=== PATIENT | female | born 1950 | race Caucasian/White ===

== ENCOUNTER → 2020-10-20 09:47 | Outpatient (BNVA) | payer MEDICARE, BC, SELFPAY | PROVIDERS: Referring Provider Family Medicine; Visit Provider Psychiatry & Neurology Neurology | DX: G25.0 Essential tremor (principal); I10 Essential (primary) hypertension; J44.9 Chronic obstructive pulmonary disease, unspecified | CPT/HCPCS: 99204 ==

== ENCOUNTER → 2023-12-04 13:42 | Outpatient (BNVA) | payer MEDICARE, BC, SELFPAY | PROVIDERS: PCP Internal Medicine; Referring Provider Internal Medicine; Visit Provider Student in an Organized Health Care Education/Training Program | DX: M17.11 Unilateral primary osteoarthritis, right knee (principal) | CPT/HCPCS: 99214 ==

== ENCOUNTER 2023-12-28 01:55 | Outpatient (CLI) | payer MEDICARE, BC, SELFPAY ==
[2023-12-28 15:08] LABS: HCT 42.5 % (36.0-46.0); HGB 14.2 g/dL (11.2-15.7); MCH 32.1 pg (27.0-33.0); MCHC 33.4 % (32.0-36.0); MCV 96 fL (80-95); MPV 9.9 fL (8.0-11.0); Platelet Count 345 10^3/uL (130-400); RBC 4.42 10^6/uL (3.93-5.22); RDW 11.8 % (11.7-14.6); RDW-SD 41.9 fL; WBC 10.09 10^3/uL (4.4-10.8)
[2023-12-28 15:36] LABS: Anion Gap 8.8 mmol/L (3-11); BUN 22 mg/dL (7-18); CO2 28.2 mmol/L (21.0-32.0); CREATININE 0.7 mg/dL (0.55-1.02); Calcium 9.5 mg/dL (8.5-10.1); Chloride 99 mmol/L (98-107); Estimated GFR 90.14 (mL/min/1.73m2); Glucose 98 mg/dL (74-106); Potassium 3.9 mmol/L (3.5-5.1); Sodium 136 mmol/L (136-145)
== END 2023-12-28 01:56 | disposition home or self-care (01) ==
LOC: LBO 01:56
PROVIDERS: PCP Internal Medicine; Visit Provider Student in an Organized Health Care Education/Training Program
DX: M17.11 Unilateral primary osteoarthritis, right knee (principal); Z01.818 Encounter for other preprocedural examination
CPT/HCPCS: 36415; 80048; 85027; 73560; 77073

== ENCOUNTER 2023-12-28 14:03 | Outpatient (CLI) | payer MEDICARE, BC, SELFPAY ==
--- NOTE | 2023-12-28 13:15 | DI.RAD_ITS ---
Exam(s) XR STANDING ALIGNMENT XR KNEE RT 1V EXAM: XR STANDING ALIGNMENT and XR knee RT 1 V CLINICAL HISTORY: TKR Planning. TECHNIQUE: 2D digital imaging was performed. Five images were obtained. COMPARISON: No priors for comparison. FINDINGS: BONES: The hips are well maintained. In the right knee, there is marked narrowing of the lateral fem oral tibial joint. Small osteophytes are seen in all 3 joint compartments. There is a small joint e ffusion. The left knee is well maintained. The ankles are well maintained.There is no significant l eg length discrepancy. SOFT TISSUE: Normal. IMPRESSION: Osteoarthritis of the right knee as described. DATA REPOSITORY: RADIATION DOSE DELIVERED:
== END 2023-12-28 14:04 | disposition home or self-care (01) ==
LOC: DIORS 14:03
PROVIDERS: PCP Internal Medicine; Visit Provider Physician Assistant
DX: M17.11 Unilateral primary osteoarthritis, right knee (principal)
CPT/HCPCS: 73560; 77073

== ENCOUNTER 2024-01-09 08:09 | Day surgery (SDC) | payer MEDICARE, BC, SELFPAY ==
[2024-01-09] VITALS (33 sets, daily range): BP systolic 119–165; BP diastolic 52–112; PULSE 66–87; RESP 12–26; TEMP 35.9–36.5; O2SAT 92–99; BMI 25.7
--- NOTE | 2024-01-09 07:32 | DSE_ITS ---
Date of service: 01/09/24 Time of Service: 10:09 Discharge Plan Disposition Patient Disposition: Home Condition: Good Discharge Details Reason For Visit: Right knee DJD Attending Provider: Damon Ashton Primary Care Provider: Katerin Nava Home Meds and New Rx's Prescriptions: New celecoxib [Celebrex] 200 mg capsule 200 mg PO BID PRNQty: 60 0RF Rx Instructions: Take one tablet twice daily for pain and inflammation aspirin 81 mg tablet,delayed release (DR/EC) 81 mg PO BID 30 Days Qty: 60 0RF acetaminophen 500 mg tablet 1,000 mg PO Q8H PRN Qty: 90 0RF Rx Instructions: Take two tablets up to every 8 hours as needed for pain dexamethasone 4 mg tablet 4 mg PO DAILY Qty: 2 0RF Rx Instructions: Take one tablet once daily for two days docusate sodium [Colace] 100 mg capsule 100 mg PO BID Qty: 30 0RF gabapentin 300 mg capsule 300 mg PO QHS Qty: 14 0RF Rx Instructions: Take one tablet at bedtime pantoprazole 40 mg tablet,delayed release (DR/EC) 40 mg PO DAILY Qty: 14 0RF oxycodone 5 mg tablet 5 mg PO Q4H PRNQty: 18 0RF Rx Instructions: Take one tablet up to every 4 hours as needed for severe postoperative pain Continued hydrochlorothiazide 25 mg tablet 25 mg PO DAILY Acidophilus Capsule 10 mg PO DAILY magnesium oxide 400 mg (241.3 mg magnesium) tablet 400 mg PO DAILY meclizine 25 mg tablet 25 mg PO DAILY PRN cod liver oil Capsule 1 cap PO DAILY fluticasone propion-salmeterol [Advair HFA] 230-21 mcg/actuation HFA aerosol inhaler 2 puff inhalation BID cholecalciferol (vitamin D3) 25 mcg (1,000 unit) capsule 50 mcg PO DAILY fexofenadine 180 mg tablet 180 mg PO DAILY famotidine 20 mg tablet 20 mg PO DAILY PRN amlodipine 5 mg tablet 5 mg PO DAILY pravastatin 40 MG tablet 40 mg PO DAILY fluticasone propionate 16 GM spray,suspension 1 spray NS BID multivitamin [Multi-Day] 1 EACH tablet 1 tab PO DAILY ipratropium-albuterol 3 ML solution for nebulization 3 ml Inhalation .Q4-6HOUR PRN triamcinolone acetonide 15 GM ointment 1 ea Topical BID PRN PRN calcium carbonate-vitamin D3 1 EACH tablet 1 tab PO DAILY omeprazole 40 MG capsule,delayed release(DR/EC) 40 mg PO BID albuterol sulfate [ProAir HFA] 200 PUFF HFA aerosol inhaler 1 - 2 puff Inhalation Q6H PRN PRN losartan 100 MG tablet 100 mg PO DAILY vit A and D3 in cod liver oil [cod liver oil] 1 EACH capsule 1 cap PO DAILY polyethylene glycol 3350 17 gram powder in packet 17 g PO DAILY PRN montelukast [Singulair] 10 MG tablet 10 mg PO HS Discontinued naproxen sodium 220 mg tablet 220 mg PO BID PRN acetaminophen [Tylenol Extra Strength] 500 MG tablet 500 - 1,000 mg PO PRN PRN Discharge Instructions Additional Instructions: Total Knee Discharge Instructions Activity: The most important activity is to walk and to work on gentle motion (both flexion and extension). You should try to take short walks a few times a day. It is important that when resting you work on keeping the knee straight. Avoid putting a pillow behind the knee as this will encourage flexion. Work on range of motion exercises as provided by Physical Therapy. - Start outpatient physical therapy within 2 weeks. - You should wear the CYNTHIA hose on both legs for 2 weeks. You may remove these at night. You may also use any compression sock in place of the CYNTHIA hose. - Utilize [employer] to review exercises, see videos on exercises and obtain basic information pertaining to your surgery and your recovery. Dressing: Remove the Gomez wrap by 2 days after your surgery and put on the CYNTHIA stocking given to you from the hospital. Keep the surgical dressing (underneath the GOMEZ wrap) in place for at least one week. After the first week it may be removed and replaced with light gauze and tape or nothing. The wound and dressing may get wet after 3 days but avoid soaking the dressing or otherwise it will need to be changed. Many people prefer covering the dressing with cling wrap (saran wrap) to minimize it from getting soaked. If it gets wet, just pat dry. If it starts to peel off then it will need to be changed. Medications: - You should take Tylenol and anti-inflammatory Celebrex as your primary pain control medications. If the Celebrex is too expensive or not covered, please call the office for another alternative (Advil/Ibuprofen or Naproxen/Aleve) - You have been prescribed a stronger pain medication Oxycodone for breakthrough pain, take as needed as prescribed. - You have also been prescribed a stomach acid reduction agent Pantoprozole to help reduce stomach acid and reflux. - You have been prescribed Gabapentin to take at night for restlessness and nerve pain. - You will be taking Aspirin 81mg twice a day for DVT prevention unless instructed otherwise. - You have also been prescribed Decadron to take to control post-operative nausea and pain. You will start this tomorrow. - If you have constipation you should take Colace (which has been prescribed) or Miralax (which is available [id number]). It takes most people 3-4 days to have a bowel movement. Follow-up: 2 weeks If you have any acute concerns or questions, please do not hesitate to contact the office at [phone]. You may contact Dr. Ashton with any questions after hours through the hospital at [phone] or on his cell phone at [phone]. Stand Alone Forms: Anesthesia Discharge Inst., Anes.Nerve Block Instructions, Huan Keene ([facility]) Referrals: Damon Ashton MD [ [facility] STAFF PHYSICIAN] - 01/22/24 1:45 pm Equipment/Supplies: Walker Activity:: Elevate Remove Dressings/Wound Care:: Do Not Remove Shower/Bathe:: Cover Diet:: As Tolerated Discharge Orders Discharge Orders: Discharge Order (Routine); Ordered 01/09/24 Ordered By: Brooke Block Discharge Data Discharge Date/Time-TO BE ENTERED AT DEPARTURE: 01/09/24 15:30 DS: Summary Time Spent with Patient providing and/or coordinating discharge services: Less than 30 minutes Status at Discharge Functional status at discharge: uses cane/walker Overall status at discharge: patient is progressing back to baseline Mental Status: mental status grossly normal Speech and Movement: speech and movement normal Mood: congruent mood Affect: normal affect Quality:SDOH Health Related Social Needs: No Data to Display Exam Psych Mental Status: mental status grossly normal Speech and Movement: speech and movement normal Mood: congruent mood Affect: normal affect DS: Data Vitals/I&O Vitals and I&O: Intake & Output 01/08/24 01/08/24 01/09/24 11:59 23:59 11:59 Weight 136 lb 15.994 oz PFSH All Active Problems Localized osteoarthritis of right knee (Acute) Thyroid nodule (Acute) Environmental allergies (Acute) prior reported negative testing decades ago but does have some improvement with antihistamine (25%) Essential tremor (Acute) Medical History Hx of sebaceous cyst Piriformis syndrome of left side Impaired fasting glucose Palpitations Pt. states she had a full work up and nothing came of it, and does not have anything currently Sciatica Lumbar spondylosis Cervical spondylosis History of inflammation of sacroiliac joint Idiopathic osteoarthritis GERD (gastroesophageal reflux disease) Asthma Allergic rhinitis Hypertension Anxiety Overweight Hyperlipidemia Surgical History S/P hemorrhoidectomy History of tonsillectomy History of appendectomy H/O tubal ligation H/O total hysterectomy History of cholecystectomy H/O ventral hernia repair H/O flexible sigmoidoscopy H/O breast biopsy Hx of cataract surgery H/O local excision of skin lesion Hx of colonoscopy History of esophagogastroduodenoscopy (EGD) Family History Mother Diabetes Coronary arteriosclerosis Osteoporosis Chronic renal failure Hypercholesterolemia Brother Hypertension Daughter Asthma Father Heart disease Alcohol abuse Son Malignant tumor of thyroid gland Sister Hypertension Breast cancer Social History (Updated 10/20/20 @ 12:17 by Ronit Villagomez MD) Smoking/Tobacco Use Status: Never Smoking risk assessment performed?: Yes Alcohol Intake: current Alcohol Intake frequency: a few times a week Alcohol type: wine Details: 1-2 TIMES PER WEEK Drug use: Never Substance use type: does not use Household members: spouse Housing: house Number of Children: 2 number of grandchildren: 1 current occupation: Retired What is your relationship status?: Panel score (0-1 are the most socially isolated patients): 1 What type of physical activity do you participate in: walking Seatbelt use: always Do you feel safe at home: Yes Do you feel safe in your relationship?: Yes Time Spent with Patient Time Spent with Patient: <45 minutes Time was spent: preparing to see the patient(eg.review tests), obtaining and/or reviewing separately otained hiistory and counseling the patient
[2024-01-09] MEDS: Celecoxib 200 MG CAP 400 MG PO (08:36)
[2024-01-09] MEDS: Gabapentin 300 MG CAP PO (08:36)
[2024-01-09] MEDS: Acetaminophen 500 MG TAB 1000 MG PO (08:36)
[2024-01-09] MEDS: Lactated Ringers 1,000 ML 80 ML IV (08:46)
--- NOTE | 2024-01-09 09:27 | W.ANESPRE ---
General Info Date of Service Date Performed: 01/09/24 Height: 5 ft 1 in Weight: 61.9 kg Body Mass Index (BMI): 25.7 Surgical Procedure: Operation Date: 01/09/24 11:25 Proposed Procedure Side Surgeon p Knee Total Arthroplasty W/ OrthAlign Right Damon Ashton MD Meds Allergies and Home Medications Allergies Allergy/AdvReac Type Severity Reaction Status Date / Time NSAIDS (Non-Steroidal Allergy Intermediate Hives Verified 01/09/24 08:25 Anti-Inflamma Sulfa (Sulfonamide Allergy Intermediate Hives Verified 01/09/24 08:25 Antibiotics) MOISE Inhibitors AdvReac cough Verified 01/09/24 08:25 Home Medication Medication Instructions Recorded fluticasone propionate 50 1 spray NS BID 08/15/14 mcg/actuation nasal spray,suspension pravastatin 40 mg tablet 40 mg PO DAILY 08/15/14 albuterol sulfate 90 mcg/actuation 1 - 2 puff inhalation Q6H PRN PRN 08/18/14 aerosol inhaler (ProAir HFA) calcium carbonate 600 mg-vitamin 1 tab PO DAILY 08/18/14 D3 5 mcg (200 unit) tablet ipratropium 0.5 mg-albuterol 3 mg 3 ml inhalation .Q4-6HOUR PRN 08/18/14 (2.5 mg base)/3 mL nebulization soln losartan 100 mg tablet 100 mg PO DAILY 08/18/14 multivitamin (Multi-Day tablet) 1 tab PO DAILY 08/18/14 omeprazole 40 mg capsule,delayed 40 mg PO BID 08/18/14 release triamcinolone acetonide 0.5 % 1 ea topical BID PRN PRN 08/18/14 topical ointment vitamins A and D3 in cod liver oil 1 cap PO DAILY 08/18/14 1,250 unit-135 unit capsule (cod liver oil) montelukast 10 mg tablet 10 mg PO HS 09/02/14 (Singulair) cholecalciferol (vitamin D3) 25 50 mcg PO DAILY 06/29/20 mcg (1,000 unit) capsule fluticasone propionate 230 2 puff inhalation BID 06/29/20 mcg-salmeterol 21 mcg/actuation HFA inhaler (Advair HFA) fexofenadine 180 mg tablet 180 mg PO DAILY 06/30/20 famotidine 20 mg tablet 20 mg PO DAILY PRN 10/20/20 polyethylene glycol 3350 17 gram 17 g PO DAILY PRN 10/20/20 oral powder packet Lactobacillus acidophilus 10 mg PO DAILY 12/04/23 (Acidophilus capsule) amlodipine 5 mg tablet 5 mg PO DAILY 12/04/23 cod liver oil 1 cap PO DAILY 12/04/23 hydrochlorothiazide 25 mg tablet 25 mg PO DAILY 12/04/23 magnesium oxide 400 mg (241.3 mg 400 mg PO DAILY 12/04/23 magnesium) tablet meclizine 25 mg tablet 25 mg PO DAILY PRN 12/04/23 Current Visit Medications: Current Medications Generic Name Dose Route Start Last Admin Trade Name Freq PRN Reason Stop Dose Admin Acetaminophen 1,000 mg 01/09/24 06:00 01/09/24 08:36 Acetaminophen 500 Mg Tab PO 01/09/24 23:59 1,000 mg PREOP MARTINA Administration Celecoxib 400 mg 01/09/24 06:00 01/09/24 08:36 Celecoxib 200 Mg Cap PO 01/09/24 23:59 400 mg PREOP MARTINA Administration Droperidol 0.625 mg 01/09/24 08:26 Droperidol 5 Mg/2 Ml Vial IVP 02/08/24 08:25 DIRECTED PRN Nausea Ephedrine Sulfate 0 mg 01/09/24 08:26 Ephedrine 25 Mg/5 Ml Syringe IVP 02/08/24 08:25 DIRECTED PRN Fentanyl 0 mcg 01/09/24 08:26 Fentanyl 100 Mcg/2 Ml Vial IVP 02/08/24 08:25 DIRECTED PRN Gabapentin 300 mg 01/09/24 06:00 01/09/24 08:36 Gabapentin 300 Mg Cap PO 01/09/24 23:59 300 mg PREOP MARTINA Administration Hydromorphone HCl 0.5 mg 01/09/24 07:30 Hydromorphone 2 Mg/Ml Syr IVP 02/08/24 07:29 Q2H PRN PRN Hydromorphone HCl 0 mg 01/09/24 08:26 Hydromorphone 2 Mg/Ml Syr IVP 02/08/24 08:25 DIRECTED PRN Ringer's Solution 1,000 mls @ 80 mls/hr 01/09/24 06:00 01/09/24 08:46 IV 01/09/24 23:59 80 mls/hr INFUSION MARTINA Administration Cefazolin Sodium/Dextrose 2 gm in 50 mls @ 100 mls/hr 01/09/24 06:00 Ancef Duplex IVPB 01/09/24 23:59 PREOP MARTINA Tranexamic Acid/Sodium Chloride 1,000 mg in 100 mls @ 600 mls/hr 01/09/24 06:00 IVPB 01/09/24 23:59 PREOP MARTINA Cefazolin Sodium/Dextrose 1 gm in 50 mls @ 100 mls/hr 01/09/24 08:00 Ancef Duplex IVPB 01/10/24 00:29 Q8H MARTINA IV Miscellaneous Supplies 1 each 01/09/24 06:00 Iv Access IV 01/09/24 23:59 DIRECTED MARTINA Naloxone HCl 0 mg 01/09/24 08:26 Naloxone 0.4 Mg/Ml Vial IVP 02/08/24 08:25 PRN PRN Oxycodone HCl 0 mg 01/09/24 07:30 Oxycodone 5 Mg Tab PO 02/08/24 07:29 Q3H PRN PRN Pain Sodium Chloride 0 ml 01/09/24 06:00 Normal Saline Flush 10 Ml Syr IV 01/09/24 23:59 PRN PRN Sodium Chloride 0 ml 01/09/24 06:00 Normal Saline 10 Ml Vial IJ 01/09/24 23:59 DIRECTED PRN Sterile Water 0 ml 01/09/24 06:00 Water,Injection,Sterile 10 Ml Vial IJ 01/09/24 23:59 DIRECTED PRN PFSH Active Problems Active Problems: Problem Status Onset Code Localized osteoarthritis of right knee M17.11 Thyroid nodule E04.1 Environmental allergies Z91.09 Essential tremor G25.0 Medical History Medical History Hx of sebaceous cyst Piriformis syndrome of left side Impaired fasting glucose Palpitations Pt. states she had a full work up and nothing came of it, and does not have anything currently Sciatica Lumbar spondylosis Cervical spondylosis History of inflammation of sacroiliac joint Idiopathic osteoarthritis GERD (gastroesophageal reflux disease) Asthma Allergic rhinitis Hypertension Anxiety Overweight Hyperlipidemia Medical History Comments:: Pt. states she is not taking any of her medication the morning of as it makes her stomach upset if she does not take them with food. She states she discussed this with prior, and he was okay with this. Surgical History Surgical History S/P hemorrhoidectomy History of tonsillectomy History of appendectomy H/O tubal ligation H/O total hysterectomy History of cholecystectomy H/O ventral hernia repair H/O flexible sigmoidoscopy H/O breast biopsy Hx of cataract surgery H/O local excision of skin lesion Hx of colonoscopy History of esophagogastroduodenoscopy (EGD) Tobacco Smoking/Tobacco Use Status: Never Alcohol Alcohol Intake: current Alcohol intake frequency: a few times a week Alcohol type: wine Details: 1-2 TIMES PER WEEK Substance Use Substance use: Never Substance use type: does not use Vital Signs and Lab Results Vital Signs Most Recent Vital Signs in EMR: Most Recent Vital Signs Temp Pulse Resp BP Pulse Ox 36.5 C 80 16 158/65 H 98 01/09/24 08:15 01/09/24 08:15 01/09/24 08:15 01/09/24 08:15 01/09/24 08:15 Lab Results Blood Type / Crossmatch: No Data to Display Complete Blood Count: White Blood Count 10.09 10^3/uL (4.4-10.8) 12/28/23 14:47 Red Blood Count 4.42 10^6/uL (3.93-5.22) 12/28/23 14:47 Hemoglobin 14.2 g/dL (11.2-15.7) 12/28/23 14:47 Hematocrit 42.5 % (36.0-46.0) 12/28/23 14:47 Platelet Count 345 10^3/uL (130-400) 12/28/23 14:47 Complete Metabolic Panel: Sodium 136 mmol/L (136-145) 12/28/23 14:47 Potassium 3.9 mmol/L (3.5-5.1) 12/28/23 14:47 Chloride 99 mmol/L (98-107) 12/28/23 14:47 Carbon Dioxide 28.2 mmol/L (21.0-32.0) 12/28/23 14:47 BUN 22 mg/dL (7-18) H 12/28/23 14:47 Creatinine 0.7 mg/dL (0.55-1.02) 12/28/23 14:47 Est GFR (CKD-EPI 2020) 90.14 (mL/min/1.73m2) 12/28/23 14:47 Calcium 9.5 mg/dL (8.5-10.1) 12/28/23 14:47 Glucose 98 mg/dL (74-106) 12/28/23 14:47 Liver Function Panel: No Data to Display Coagulation Panel: No Data to Display Cardiac Panel: No Data to Display Arterial Blood Gas: No Data to Display Venous Blood Gas: No Data to Display Pancreas Panel: No Data to Display Thyroid Panel: No Data to Display Infectious Disease: No Data to Display Blood Cultures: No Data to Display Toxicology Panel: No Data to Display Anesthesia Assessment and Plan Anesthesia History Personal History: No History of Anesthesia Complications Family History: No Family History of Anesthesia Complications Exercise Tolerance Exercise Tolerance: Metabolic Equivalents>4 Pertinent Negatives Pertinent Negatives: No Symptoms of GERD Cardiac & Pulmonary Exam Cardiac Exam: Normal S1/S2 Heart Sounds Pulmonary Exam: Clear Bilateral Breath Sounds Implantable Cardiac Device Does patient have a Pacemaker or an ICD?: No Airway Exam Known Difficult Airway: No Mallampati Class: 2 Mouth Opening: Normal (> 3cm) Thyromental Distance: Greater than 3 cm Neck Range of Motion: Full ROM Neck Circumference: Normal Teeth Condition: Normal Dentition ASA Classification ASA Score: ASA 2 Emergency Case?: No NPO Status NPO Status: NPO Clears >2 hours, Solids >8 hours Anesthesia Plan Resuscitation Status: Full Code Anesthesia Technique: Spinal Anesthesia Airway Planned: Natural Airway Monitors Used: Standard Monitors
--- NOTE | 2024-01-09 10:01 | W.ANESNERVE ---
Nerve Block Single Injection Procedure Date and Time Date Performed: 01/09/24 Procedure Start: 09:34 Location Where Procedure Performed Procedure Location: Day Surgery Unit Reason Performed: Postoperative Analgesia Requesting Provider: Damon Ashton Timeout Performed Timeout Performed: Yes Monitoring Used ECG, Blood Pressure, SpO2 and See EMR for corresponding vital signs Sterility Sterility: Hand Hygiene, Surgical Cap, Surgical Mask, Sterile Gloves, Eye Protection and Chlorhexidine Sedation Given During Procedure Sedation Given (Indicate Dose Given): Versed IV Dose:: 2mg IVP Patient Mental Status Patient Mental Status: Sedate with meaningful communication Nerve Block 1st Nerve Block: Laterality: Right Block Type: Adductor Canal Ultrasound Image Saved?: Yes Needle / Catheter Used: 100mm SonoPlex II Local Anesthetic Bolus (Indicate Dose Given): Lidocaine used for local infiltration of skin, Injected in 3-5ml increments after negative blood aspiration and Ropivacaine 0.5% Dose:: 0.5%/20cc (100mg) Additives (Indicate Dose Given): Epinephrine to make 1:200,000 (5mcg/ml) Dose:: 100mcg and Decadron Dose:: 10mg PF Ultrasound: Sterile probe cover and gel used Nerve Stimulator: Not Used Paresthesia: None Procedure Tolerated: No Complications and Patient tolerated well Procedure Outcome: Successful Performed By: Dennis Diaz
[2024-01-09] MEDS: ceFAZolin 2 GM/50 ML BAG IVPB (10:40)
[2024-01-09] MEDS: TRANEXAMIC ACID/SOD. CHL. 1,000 MG/100 ML BAG 600 MG IVPB (10:50)
--- NOTE | 2024-01-09 13:05 | W.ANESPOSTOP ---
Postoperative Evaluation Date, Time and Location Date Performed: 01/09/24 Time Performed: 13:06 Patient Location: Day Surgery Unit Vital Signs Most Recent Imported Vital Signs: Most Recent Vital Signs Temp Pulse Resp BP Pulse Ox 36.5 C 72 15 139/68 98 01/09/24 12:38 01/09/24 12:40 01/09/24 12:40 01/09/24 12:40 01/09/24 12:40 Pain Score Most Recent Pain Score: Most Recent Pain Score Pain Level 0 01/09/24 12:38 Assessment Mental Status: Awake (Alert & Oriented to Patient Baseline) Airway and Respiratory Function: Patent airway with normal (patient baseline) respiratory exam Cardiovascular Function: Hemodynamically Stable Hydration Status: Adequately Hydrated Nausea & Vomiting: No Nausea or Vomiting Pain: Pt. Denies Any Pain Peripheral Nerve Block: Regional nerve block not resolved at time of post operative discharge
--- NOTE | 2024-01-09 14:18 | W.PM.OP ---
Date of service: 01/09/24 Time of Service: 10:45 Operative Note Operative Note DATE OF PROCEDURE: 01/09/24 PRE-OP DIAGNOSIS: Right Knee Osteoarthritis with Valgus Deformity POST-OP DIAGNOSIS: same PROCEDURE: Right Total Knee Replacement with Intraoperative Navigation SURGEON: Damon Ashton FURNACE ROOM SUPERVISOR: Brooke Block ANESTHESIA TYPE: Spinal Refer to Anesthesia Record ESTIMATED BLOOD LOSS: 100 PATHOLOGY: none sent TOURNIQUET TIME: 0 COMPLICATIONS: None Patient was transported to: PACU Patient's condition: stable Implants: 1. Depuy Attune Cementless Cruciate Retaining Femoral Component, Size 5 Narrow 2. Depuy Attune Cementless Fixed Bearing Tibial Component, Size 4 3. Depuy Attune 5x7 CR/FB Poly 4. Depuy Attune Patellar Component, Size 32 Indications: I have seen Sara in clinic for symptoms of RIGHT knee arthritis, confirmed with radiographic findings. Sara has exhausted nonoperative methods and was having significant limitations in daily function and desired better function and less pain. I discussed the technical details of a knee replacement. I explained the risks of the procedure to include, but not limited to, bleeding, infection, pain, stiffness, fracture, damage to nerves and vessels, damage to muscles and tendons, loosening, need for repeat procedure, blood clot and cardiopulmonary demise. Despite these risks, she elected to proceed. Findings: There was significant signs of arthritis significantly worse in the lateral compartment with wear of the lateral tibia and posterior lateral femur. Procedure Description: Sara was greeted in the preoperative holding area where the correct side was identified and marked. The consent was reviewed with the patient and signed. The history and physical was updated. All questions were answered. Preoperative mediacations were administered: Acetaminophen 1000mg, Celebrex 400mg, and Gabapentin 300mg. An adductor canal block was then administered by the anesthesia team in the PACU. Sara was taken back to the operating room. A spinal anesthestic was then administered. The patient was placed into the supine position on the operating room table. A nonsterile tourniquet was placed high onto the leg. Posts were placed for positioning during the procedure. All bony prominences were well padded. Prophylactic antibiotics in the form of Cefazolin were administered. 1g of Tranxemic Acid was given intravenously within 30 minutes of incision. The right leg was then prepped with Chloraprep and draped in a standard fashion with impervious stockinette. A second prep with Chloraprep was performed prior to application of Iodine impregnated skin protection. A timeout to confirm correct identity, side and site, procedure, allergies, anesthesia, and medical concerns was performed. With the knee in some flexion, a midline incision was made overlying the knee. Full thickness skin flaps were raised once the extensor mechanism was encountered. These were raised medially and laterally. Any bleeding was controlled with electrocautery. Once the extensor mechanism was fully exposed, a medial parapatellar arthrotomy was performed in a flexed position. All bleeding from the arthrotomy and the geniculate arteries was coagulated. A medial subperiosteal peel was performed with electrocautery to the midcoronal plane. The fat pad was removed while keeping the patellar tendon protected. The anterior distal femur synovium was removed for later visualization. The ACL and PCL were resected and the anterior horn of the lateral meniscus was transected. The knee was then flexed with the patella everted. A single starting pin was then placed 1cm anterior to the PCL insertion and the notch in the direction of the femoral head. The OrthoAlign device was applied over the pin. It was oriented to be in line with the epicondylar axis and the trochlear groove. It was then pinned into place. The navigation computer was then turned on and calibrated. The distal femur cut was set at 0.5 degrees valgus and 3.5 degrees flexion. The distal femur cutting guide then was positioned for a 9mm cut. The distal femur was cut with an oscillating saw while protecting the soft tissues. The tibia was then addressed. The OrthoAlign device was placed over the tibial tubercle and medial tibia and secured into position. Once again, OrthoAlign was calibrated and then set for a 0.5 degree varus cut and 5 degrees of posterior slope. With this locked into position, the cut thickness stylus was used to assess cut thickness. The lateral side, most involved side, was set for a 6mm cut, corresponding to 8mm medially. This was then held in position and pinned into place with 2 additional pins and a cross pin for stability. The medial and lateral collateral ligaments were protected and the cut was performed. With this completed, it was assessed and noted to be of appropriate dimensions. The guide and OrthoAlign was removed. A spacer block was inserted and the knee was brought into extension to ensure enough space was present. . The Orthoalign gap balancing device was then placed in extension. This was used to ensure that the ligaments were properly balanced with up to 2 to 3 mm laxity laterally compared medially. The extension gap was measured as 20mm. The knee was then brought into 90 degrees of flexion and the ligament public health microbiologist was once again placed. Under the same amount of force the flexion gap was measured. The Attune specific jig was placed and the flexion gap was made to match the extension gap. The femur was then sized as a size 5 narrow. The 4-in-1 cutting guide was the placed. An grupo wing was used to confirm appropriate position of the anterior cut to avoid notching. This cutting guide was ensured to be flush on the cut surface and then pinned into place with headed pins. While protecting the soft tissues, quad tendon, and collateral ligaments, the anterior and posterior cuts were performed with a saw. The central two pins were removed and the posterior and anterior chamfers were cut next. The notch-cutting guide was placed. This was pinned to lateralize the femoral component as much as possible while keeping it flush on the cut surface. This was then pinned into position. A saw was used to make the notch cut. A rasp smoothed the cut surfaces. The medial and lateral menisci were removed. A trial femoral component was then inserted, impacted down to the cut surfaces, and the lug holes were drilled. A provisional trial tibial component was placed and the knee was brought through range of motion. There was noted to be excellent extension and flexion. There was no significant instability. The patella was tracking without thumbs. A size 7mm polyethylene component provided the best range of motion and stability with less than 2mm gapping with medial and lateral stress and full extension without significant hyperextension. The tibial cut surface was fully exposed. The tibia was then sized as a 4. The tibia had been previously marked during trialing to correspond to the center of the tibial component to help with rotation. The trial was aligned to this sheridan, approximately rotated to the medial 1/3rd of the tibial tubercle. The trial was pinned into place. The tibia was prepared with a reamer and a keel punch and lug holes. The knee was then brought into extension and the patella was measured as 23mm. Using the patellar clamp and cut guide, this was resected to a flat surface with at least 13mm of thickness remaining. The size 32 patella fit the best. This was oriented and then clamped into position. The lugs were drilled. The trial components were removed. The final components were opened on the back table. The periosteal and capsular tissues, especially posteriorly, around the knee were then systematically injected with a periarticular cocktail consisting of 246mg of Ropivacaine, 0.5mg of Epinephrine, 0.08mg of Clonidine, and 30mg of Ketorolac, diluted to 100cc. On the back table, with the implants opened, the cement was mixed. One batch of high viscosity cement was prepared with vacuum assistance. After the cement was ready a small amount was placed on the cut surface of the patella and the patellar button was clamped into position and held. While the cement was hardening, the cementless knee components were placed. Starting with the tibial component, the tibia was subluxed anteriorly and the lug holes of the component were lined up. The tibia was then impacted with an impactor and mallet until the tibial component was in contact with the tibia. Then, the femoral component was inserted. The lug holes were aligned and the component was impacted into position. The final polyethylene component was inserted. The knee was irrigated with Surgiphor Betadine solution. This was allowed to sit in the knee for 3 minutes and then it was thoroughly irrigated out with saline. After the cement had finally cured, approximately 15min, the clamp was removed from the patella and the knee was taken through range of motion. The patella was tracking with a no-thumbs technique. The capsule was then reapproximated with a No. 1 Vicryl at multiple locations. The capsule was finally closed with a No. 2 Stratafix, barbed suture. Deep tissues were then reapproximated with 0 Vicryl and 2-0 Vicryl. The skin was closed with a running 3-0 Monocryl in a subcuticular fashion. This was reinforced with skin glue. A Mepilex silver dressing was applied along with a [id number] MOISE wrap. A CryoCuff was applied. Sara was transferred to the hospital bed without difficulty an suffering no apparent complication. Sara has a good prognosis. Physical therapy will start today and without restrictions, weight-bearing as tolerated. Aspirin 81mg BID will be used for DVT prophylaxis.
--- NOTE | 2024-01-09 14:53 | IN_ITS ---
PT Notes Visit Reasons: Right knee DJD Physical Therapy Day Surgery Initial Evaluation Date: 01/09/2024 Referring Doctor: JOHNATHON Yousif PT Orders: PT CONSULT: S/P Ortho Surgery Precautions: Per Dr. Ashton, WBAT on the right LE with AD. Patient Profile/Admitting Diagnosis: Sara is a 73-year-old female with degenerative joint disease of the right knee and status post right total knee arthroplasty on postoperative day 0. PMHX: Medical History Allergic rhinitis Anxiety Asthma Cervical spondylosis GERD (gastroesophageal reflux disease) History of inflammation of sacroiliac joint Hx of sebaceous cyst Hyperlipidemia Hypertension Idiopathic osteoarthritis Impaired fasting glucose Lumbar spondylosis Overweight Palpitations Piriformis syndrome of left side Sciatica Surgical History H/O breast biopsy H/O flexible sigmoidoscopy H/O local excision of skin lesion H/O total hysterectomy H/O tubal ligation H/O ventral hernia repair History of appendectomy History of cholecystectomy History of esophagogastroduodenoscopy (EGD) History of tonsillectomy Hx of cataract surgery Hx of colonoscopy S/P hemorrhoidectomy Social History/Home Situation: Lives with in a private home with 5 steps to enter with rails on both sides. Independent with all aspects vitals prior to surgery. Equipment Owned/DME: [facility] Subjective: Minimal pain and discomfort 1/10 in the right knee at rest and with movement. Denied headache, chest pain, and lightheadedness throughout session. Objective: General Observation: Sitting on bedside recliner. MOISE wraps to right LE. Cryo/Cuff to right knee. TEDS to left leg. Has been present throughout evaluation Mental Status: Alert and oriented x 4 Pain: 1/10 in the R knee at rest and with movement ROM: Right Lower Extremity: Hip flexion WFL. Hip abduction WFL. Knee flexion 10 degrees to 110 degrees. Extension -10 degrees ankle dorsiflexion WFL. Ankle plantarflexion WFL. Left Lower Extremity: Hip flexion WFL. Hip abduction WFL. Knee flexion WFL. Ankle dorsiflexion WFL. Ankle plantarflexion WFL. Strength: Right Lower Extremity: Hip flexors 4/5. Hip abductors 4/5. Knee flexors 3-/5. Knee extensors 3-/5. Ankle dorsiflexors 4/5. Ankle plantarflexors 4/5. Left Lower Extremity:Hip flexors 5/5. Hip abductors 5/5. Knee flexors 5/5. Knee extensors 5/5. Ankle dorsiflexors 5/5. Ankle plantarflexors 5/5. Sensation: Intact as to pain and light pressure in bilateral lower extremities Bed Mobility/Transfers: Minimal cueing provided for use of B hands as needed for support, movement sequence, AD management, and posture to reduce fall risk and minimize pain report Sit to stand stand by assist Stand to sit stand by assist Bed to chair stand by assist Gait: Facilitated safe and correct performance of level surface ambulation covering a distance of 150 feet using front wheeled walker with reciprocal heel-toe gait pattern requiring only standby assist and minimal verbal cueing for correct gait pattern, AD management, and posture to minimize pain report and reduce fall risk. Stairs: Guided patient with safe and correct negotiation of 3 x 4 inch steps and 4 x 6 inch steps while holding onto bilateral rails with step to gait pattern requiring minimal verbal cueing for increased knee flexion on the right during each ascent, hand placement, and posture to minimize fall risk and reduce pain report. Balance: Static Sitting: Normal Dynamic Sitting: Normal Static Standing: Fair Dynamic Standing: Fair Special Tests: Mobility Limitations Standardized Measure [facility] AM-PAC 6 clicks Basic Mobility Inpatient Short Form: Raw Score: 24 CMS Score: 0% deficit Informed Consent/Education: Patient instructed in purpose of PT consult. Packet containing TKA exercise protocol has been given to patient. Education and training on initial set of exercises that can be done at home have been completed with patient. Trained patient with correct performance of exercises below to maximize motor control, joint flexibility, soft tissue extensibility of the R knee musculature: Access Code: [email or web address] URL: [email or web address] Date: 01/08/2023 Prepared by: Leslie Davila Exercises - Supine Quad Set - 1 x daily - 7 x weekly - 1 sets - 10 reps - 5 hold - Supine Heel Slide - 1 x daily - 7 x weekly - 1 sets - 10 reps - 5 hold - Supine Ankle Pumps - 1 x daily - 7 x weekly - 1 sets - 10 reps - 5 hold - Small Range Straight Leg Raise - 1 x daily - 7 x weekly - 1 sets - 10 reps - 5 hold - Seated March - 1 x daily - 7 x weekly - 1 sets - 10 reps - 5 hold ASSESSMENT: Sara requires the use of a front wheeled walker for mobility ADL performance to maximize independence and reduce fall risk. Patient presents with clinical signs and symptoms consistent with current/admitting diagnoses that have resulted to mobility limitations, gait instability, generalized weakness, and impairment of motor control as demonstrated by the following impairment level findings: 1. Decreased strength to R knee major muscle groups 2. Impaired standing balance 3. Limitation of joint range of motion in R knee Impairments are contributing to the following functional limitations: 1. Inability to safely ambulate without assistive device 2. Increase completion time for mobility ADL performance 3. Increased fall risk Patient is assessed as a 67854 complexity based on the following: History: 73-year-old female with impairment level findings, functional limitations, and past medical history as indicated above Examination: Demonstrable impairment in strength, balance, and mobility level with underlying impairments and functional limitations as documented above Presentation: Evolving Decision Makin moderate complexity Goals: N/A. PT evaluation and 1-2 treatment sessions only for functional mobility training using recommended AD and for HEP instruction. Plan of Care/Treatment Plan: N/A. PT evaluation and 1-2 treatment session only for functional mobility training using recommended AD and for HEP instruction. DISCHARGE RECOMMENDATIONS: Home when medically cleared by orthopedic surgeon. Recommend outpatient PT services in order to optimize functional mobility outcomes and facilitate return to independent community ambulation without an assistive device. TREATMENT CODE/TIME: 9716 2 x 27 minutes for 1 unit (14: 53?15: 20). Thank you for the opportunity to participate in the care of this patient. Please sign an return this page within 30 days if you agree with the above POC. Thank you! Physician Signature Date [facility] Thank you for the opportunity to participate in the care of this patient. Leslie Davila PT, DPT, CLT [facility] [place], [place]
== END 2024-01-09 15:30 | disposition home or self-care (01) ==
LOC: SUR 08:10
PROVIDERS: PCP Internal Medicine; Visit Provider Student in an Organized Health Care Education/Training Program
PROC: (CPT 27447; principal; 2024-01-09 11:15)
DX: M17.11 Unilateral primary osteoarthritis, right knee (principal); M21.061 Valgus deformity, not elsewhere classified, right knee; I10 Essential (primary) hypertension; J45.909 Unspecified asthma, uncomplicated; E78.5 Hyperlipidemia, unspecified; G25.0 Essential tremor
CPT/HCPCS: 20985; 27447; C1776; 76942; 97162; J0171; J0690; J1100; J2001; J2250; J2371; J2401; J2405; J2704

== ENCOUNTER 2024-01-22 15:31 | Outpatient (CLI) | payer MEDICARE, BC, SELFPAY ==
--- NOTE | 2024-01-22 13:45 | DI.RAD_ITS ---
Exam(s) XR STANDING ALIGNMENT EXAM: XR STANDING ALIGNMENT CLINICAL HISTORY: 1ST POST OP S/P R TKA. TECHNIQUE: 2D digital imaging was performed. COMPARISON: CR XR STANDING ALIGNMENT from 12/28/2023 FINDINGS: 3 views There has been interval placement of a right knee prosthesis which appears satisfactory. Left knee a ppears unremarkable. Hips unremarkable. Ankles unremarkable. Bone density normal. No osseous lesi ons in long bones of the lower extremities nor within the pelvis. IMPRESSION: As above. DATA REPOSITORY: RADIATION DOSE DELIVERED:
--- NOTE | 2024-01-22 13:45 | DI.RAD_ITS ---
Exam(s) XR KNEE RT 1V EXAM: XR KNEE RT 1V CLINICAL HISTORY: 1ST POST OP S/P R TKA. TECHNIQUE: 2D digital imaging was performed. COMPARISON: CR XR KNEE RT 1V from 12/28/2023 FINDINGS: Single lateral view Position alignment of the components of the recently placed right knee prosthesis are satisfactory. No fracture or loosening evident. IMPRESSION: Satisfactory appearance DATA REPOSITORY: RADIATION DOSE DELIVERED:
== END 2024-01-22 15:32 | disposition home or self-care (01) ==
LOC: DIORS 15:31
PROVIDERS: PCP Internal Medicine; Referring Provider Internal Medicine; Visit Provider Student in an Organized Health Care Education/Training Program
DX: Z96.651 Presence of right artificial knee joint (principal); Z47.1 Aftercare following joint replacement surgery
CPT/HCPCS: 73560; 77073

== ENCOUNTER → 2024-02-19 13:35 | Outpatient (BNVA) | payer MEDICARE, BC, SELFPAY | PROVIDERS: PCP Internal Medicine; Referring Provider Internal Medicine; Visit Provider Student in an Organized Health Care Education/Training Program | DX: Z47.1 Aftercare following joint replacement surgery (principal); Z96.651 Presence of right artificial knee joint ==

== ENCOUNTER → 2024-03-01 08:17 | Outpatient (BNVA) | payer MEDICARE, BC, SELFPAY | PROVIDERS: PCP Internal Medicine; Referring Provider Internal Medicine | DX: M70.61 Trochanteric bursitis, right hip (principal) | CPT/HCPCS: 20610; J1010 ==

== ENCOUNTER → 2024-04-01 13:11 | Outpatient (BNVA) | payer MEDICARE, BC, SELFPAY | PROVIDERS: PCP Internal Medicine; Referring Provider Internal Medicine; Visit Provider Student in an Organized Health Care Education/Training Program | DX: Z47.1 Aftercare following joint replacement surgery (principal); M70.61 Trochanteric bursitis, right hip; Z96.651 Presence of right artificial knee joint | CPT/HCPCS: 99024 ==

== ENCOUNTER → 2024-06-17 10:54 | Outpatient (BNVA) | payer MEDICARE, OTHER, SELFPAY | PROVIDERS: PCP Internal Medicine; Referring Provider Internal Medicine; Visit Provider Student in an Organized Health Care Education/Training Program | DX: M70.51 Other bursitis of knee, right knee (principal); M70.61 Trochanteric bursitis, right hip; Z96.651 Presence of right artificial knee joint | CPT/HCPCS: 20610; J1010 ==

== ENCOUNTER → 2024-09-30 14:14 | Outpatient (BNVA) | payer MEDICARE, OTHER, SELFPAY | PROVIDERS: PCP Internal Medicine; Referring Provider Internal Medicine; Visit Provider Student in an Organized Health Care Education/Training Program | DX: M70.51 Other bursitis of knee, right knee (principal); M70.61 Trochanteric bursitis, right hip; Z96.651 Presence of right artificial knee joint | CPT/HCPCS: 99213 ==

== ENCOUNTER 2025-01-09 14:46 | Outpatient (CLI) | payer MEDICARE, OTHER, SELFPAY ==
--- NOTE | 2025-01-09 13:45 | DI.RAD_ITS ---
Exam(s) XR KNEE RT 2V AP,LAT EXAM: XR KNEE RT 2V AP,LAT INDICATION: F/U RIGHT TKA. COMPARISON: CR XR STANDING ALIGNMENT from 01/22/2024 CR XR KNEE RT 1V from 01/22/2024 TECHNIQUE: 2D digital imaging was performed. Two views. FINDINGS: There is stable alignment of the total knee prosthesis. There are no abnormal surrounding bony lucencies. DATA REPOSITORY: RADIATION DOSE DELIVERED:
== END 2025-01-09 14:47 | disposition home or self-care (01) ==
LOC: DIORS 14:47
PROVIDERS: PCP Internal Medicine; Referring Provider Internal Medicine; Visit Provider Physician Assistant
DX: M70.51 Other bursitis of knee, right knee (principal); M70.61 Trochanteric bursitis, right hip; Z47.1 Aftercare following joint replacement surgery; Z96.651 Presence of right artificial knee joint
CPT/HCPCS: 99213; 73560